=== PATIENT | female | born 1990 | race Caucasian/White ===

== ENCOUNTER 2020-11-16 09:50 | Emergency (ER) | payer SELFPAY ==
[2020-11-16 11:45] LABS: Basophils % 0.5 % (0-1.3); Hematocrit 41.5 % (36.0-45.0); Lymphocytes % 29.6 % (15.3-44.8); MPV 8.1 fL (7.6-11.3); RBC Red Blood Cell Count 4.85 M/uL (3.86-4.86)
[2020-11-16] MEDS ORDERED: ONDANSETRON 4 MG/2 ML VIAL ONE (11:54)
[2020-11-16] MEDS ORDERED: KETOROLAC 30 MG/ML INJ ONE (11:54)
[2020-11-16] MEDS ORDERED: NA CHLORIDE 0.9% 1,000 ML ONE (11:55)
[2020-11-16 12:03] LABS: BUN Blood Urea Nitrogen 13 mg/dL (7-18); Bicarbonate 27 mmol/L (21-32); Glucose Level 95 mg/dL (74-106); Potassium 4.3 mmol/L (3.5-5.1); Sodium Level 139 mmol/L (136-145)
[2020-11-16 12:10] LABS: HCG, Quantitative < 1 mIU/mL (1-3)
--- NOTE | 2020-11-16 12:21 | RAD REPORT ---
EXAM DESCRIPTION: US - Transvaginal Study Probe - 11/16/2020 11:58 am CLINICAL HISTORY: ABD PAIN Pelvic pain. COMPARISON: No comparisons FINDINGS: The uterus is normal in size, shape and echotexture. The uterus measures 8.4 x 4.1 x 5.2 c m. The endometrial stripe measures 7 mm, normal. Both ovaries are normal in size, shape and echotexture. The right ovary measures 1.9 x 1.8 cm. The left ovary measures 2.0 x 1.8 cm. No ovarian or parovarian lesions. No adnexal masses. Normal Doppler blood flow was demonstrated to both ovaries. No significant pelvic ascites. IMPRESSION: Unremarkable study.
--- NOTE | 2020-11-16 12:26 | ER ---
Nurse's Notes [facility] Name: Katrin Szymanski Age: 30 yrs Sex: Female : 1990 Arrival Date: 11/16/2020 Time: 09:51 Bed 4 Private MD: Diagnosis: Abdominal and pelvic pain;Abnormal uterine and vaginal bleeding, unspecified Presentation: 11/16 10:13 Chief complaint: Patient states: Lower abdominal pain for 2 weeks. On 11/02/20 she ll1 started having heavy vaginal bleeding with large clots in it, lasted 4 days. Ever since she feels bloated, crampy, malaise, fatigue and SOB easily. No fever. + nausea. Coronavirus screen: Client denies travel out of the [place] in the last 14 days. At this time, the client does not indicate any symptoms associated with coronavirus-19. Ebola Screen: Patient denies travel to an Ebola-affected area in the 21 days before illness onset. Initial Sepsis Screen: Does the patient meet any 2 criteria? No. Patient's initial sepsis screen is negative. Does the patient have a suspected source of infection? Yes: Acute abdominal pain. Risk Assessment: Do you want to hurt yourself or someone else? Patient reports no desire to harm self or others. Onset of symptoms was November 02, 2020. 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 Flu vaccine is not up to date. - Social history:: Smoking status: Patient denies any tobacco usage or history of. Screenin:41 Abuse screen: Denies threats or abuse. Nutritional screening: No deficits noted. jd3 Tuberculosis screening: No symptoms or risk factors identified. Fall Risk Ambulatory Aid- None/Bed Rest/Nurse Assist (0 pts). Gait- Normal/Bed Rest/Wheelchair (0 pts) Mental Status- Oriented to own ability (0 pts). Total Madden Fall Scale indicates No Risk (0-24 pts). Assessment: 11:38 General: Appears in no apparent distress. comfortable, Behavior is calm, cooperative, jd3 appropriate for age, Reports fatigue for >3 days. Pain: Complains of pain in abdomen Quality of pain is described as aching, tender. Neuro: Level of Consciousness is awake, alert, obeys commands, Oriented to person, place, time, situation. Cardiovascular: Denies chest pain, Capillary refill < 3 seconds Patient's skin is warm and dry. Respiratory: Airway is patent Respiratory effort is even, unlabored, Respiratory pattern is regular, symmetrical, Denies cough, shortness of breath. GI: Abdomen is round non-distended, Abd is soft and non tender X 4 quads. Reports lower abdominal pain, nausea. : Reports vaginal bleeding that is with clots. EENT: No signs and/or symptoms were reported regarding the EENT system. Derm: Skin is intact, Skin is dry, Skin is normal, Skin temperature is warm. Musculoskeletal: Circulation, motion, and sensation intact. Range of motion: intact in all extremities. 12:59 Reassessment: Patient appears in no apparent distress at this time. Patient and/or jd3 family updated on plan of care and expected duration. Pain level reassessed. Patient is alert, oriented x 3, equal unlabored respirations, skin warm/dry/pink. Patient states feeling better. Vital Signs: 10:13 BP 138 / 74; Pulse 85; Resp 16; Temp 98.3; Pulse Ox 99% ; Weight 95.25 kg; Height 5 ft. ll1 3 in. (160.02 cm); Pain 5/10; 13:01 BP 128 / 70; Pulse 83; Resp 16 S; Pulse Ox 99% on R/A; jd3 10:13 Body Mass Index 37.20 (95.25 kg, 160.02 cm) ll1 ED Course: 09:51 Patient arrived in ED. am2 10:15 Triage completed. ll1 10:16 Arm band placed on. ll1 10:35 Benedict Huitron MD is Attending Physician. meg 10:36 Patient placed in an exam room, on a stretcher. ll1 10:42 Brett De Luna RN is Primary Nurse. jd3 11:30 Inserted saline lock: 20 gauge in left antecubital area, using aseptic technique. Blood jd3 collected. 11:41 Patient has correct armband on for positive identification. Bed in low position. Call jd3 light in reach. Side rails up X 1. Pulse ox on. NIBP on. 11:48 US Transvaginal Study (Probe) In Process Unspecified. EDSD 12:25 Katharine Swanson MD is Referral Physician. [facility] 13:00 No provider procedures requiring assistance completed. IV discontinued, intact, jd3 bleeding controlled, No redness/swelling at site. Pressure dressing applied. Administered Medications: 11:50 Drug: NS 0.9% 1000 ml Route: IV; Rate: 1 bolus; Site: left antecubital; jd3 12:50 Follow up: Response: No adverse reaction; IV Status: Completed infusion jd3 11:50 Drug: TORadol (ketorolac) 30 mg Route: IVP; Site: left antecubital; jd3 12:50 Follow up: Response: No adverse reaction jd3 11:50 Drug: Zofran (Ondansetron) 4 mg Route: IVP; Site: left antecubital; jd3 12:50 Follow up: Response: No adverse reaction jd3 Outcome: 12:25 Discharge ordered by . [facility] 13:00 Discharged to home ambulatory, with family. jd3 13:00 Condition: stable 13:00 Discharge instructions given to patient, Instructed on discharge instructions, follow up and referral plans. medication usage, Demonstrated understanding of instructions, follow-up care, medications, Prescriptions given X 1. 13:03 Patient left the ED. jd3 Signatures: Dispatcher [employer] EDSD Benedict Huitron MD MD cha Moreno, Amanda am2 Brett De Luna RN RN Mai Joshi RN RN ll1 Corrections: (The following items were deleted from the chart) 13:02 13:02 Response: No adverse reaction; IV Status: Completed infusion jd3 jd3
--- NOTE | 2020-11-16 12:26 | EDPHYS ---
Physician Documentation [facility] Name: Katrin Szymanski Age: 30 yrs Sex: Female : 1990 Arrival Date: 11/16/2020 Time: 09:51 Bed 4 Private MD: GAVIN Physician Benedict Huitron HPI: 11/16 11:15 This 30 yrs old Female presents to ER via Ambulatory with complaints of meg Abdominal Pain. 11:15 The patient presents with abdominal pain in the lower abdomen. Onset: The meg symptoms/episode began/occurred 5 day(s) ago. The patient presents with pelvic pain, the pain does not radiate, the pain is described as constant, crampy, vaginal bleeding that is. Onset: The symptoms/episode began/occurred 14 day(s) ago. Modifying factors: The symptoms are alleviated by nothing, the symptoms are aggravated by movement, pressure, walking. Associated signs and symptoms: The patient has no apparent associated signs or symptoms. Severity of symptoms: At their worst the symptoms were moderate, in the emergency department the symptoms are unchanged. The symptoms do not radiate. The patient is sexually active. 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 Flu vaccine is not up to date. - Social history:: Smoking status: Patient denies any tobacco usage or history of. ROS: 11:16 Constitutional: Negative for fever, chills, and weight loss, Eyes: Negative for injury, meg pain, redness, and discharge, ENT: Negative for injury, pain, and discharge, Neck: Negative for injury, pain, and swelling, Cardiovascular: Negative for chest pain, palpitations, and edema, Respiratory: Negative for shortness of breath, cough, wheezing, and pleuritic chest pain, Back: Negative for injury and pain, : Negative for injury, bleeding, discharge, and swelling, MS/Extremity: Negative for injury and deformity, Skin: Negative for injury, rash, and discoloration, Neuro: Negative for headache, weakness, numbness, tingling, and seizure, Psych: Negative for depression, anxiety, suicide ideation, homicidal ideation, and hallucinations, Allergy/Immunology: Negative for hives, rash, and allergies, Endocrine: Negative for neck swelling, polydipsia, polyuria, polyphagia, and marked weight changes, Hematologic/Lymphatic: Negative for swollen nodes, abnormal bleeding, and unusual bruising. 11:16 Abdomen/GI: Positive for abdominal pain, of the right lower quadrant and left lower quadrant. Exam: 11:16 Constitutional: This is a well developed, well nourished patient who is awake, alert, meg and in no acute distress. Head/Face: Normocephalic, atraumatic. Eyes: Pupils equal round and reactive to light, extra-ocular motions intact. Lids and lashes normal. Conjunctiva and sclera are non-icteric and not injected. Cornea within normal limits. Periorbital areas with no swelling, redness, or edema. ENT: Nares patent. No nasal discharge, no septal abnormalities noted. Tympanic membranes are normal and external auditory canals are clear. Oropharynx with no redness, swelling, or masses, exudates, or evidence of obstruction, uvula midline. Mucous membranes moist. Neck: Trachea midline, no thyromegaly or masses palpated, and no cervical lymphadenopathy. Supple, full range of motion without nuchal rigidity, or vertebral point tenderness. No Meningismus. Chest/axilla: Normal chest wall appearance and motion. Nontender with no deformity. No lesions are appreciated. Cardiovascular: Regular rate and rhythm with a normal S1 and S2. No gallops, murmurs, or rubs. Normal PMI, no JVD. No pulse deficits. Respiratory: Lungs have equal breath sounds bilaterally, clear to auscultation and percussion. No rales, rhonchi or wheezes noted. No increased work of breathing, no retractions or nasal flaring. Abdomen/GI: Soft, non-tender, with normal bowel sounds. No distension or tympany. No guarding or rebound. No evidence of tenderness throughout. Back: No spinal tenderness. No costovertebral tenderness. Full range of motion. Skin: Warm, dry with normal turgor. Normal color with no rashes, no lesions, and no evidence of cellulitis. MS/ Extremity: Pulses equal, no cyanosis. Neurovascular intact. Full, normal range of motion. Neuro: Awake and alert, GCS 15, oriented to person, place, time, and situation. Cranial nerves II-XII grossly intact. Motor strength 5/5 in all extremities. Sensory grossly intact. Cerebellar exam normal. Normal gait. Psych: Awake, alert, with orientation to person, place and time. Behavior, mood, and affect are within normal limits. Vital Signs: 10:13 BP 138 / 74; Pulse 85; Resp 16; Temp 98.3; Pulse Ox 99% ; Weight 95.25 kg; Height 5 ft. ll1 3 in. (160.02 cm); Pain 5/10; 13:01 BP 128 / 70; Pulse 83; Resp 16 S; Pulse Ox 99% on R/A; jd3 10:13 Body Mass Index 37.20 (95.25 kg, 160.02 cm) ll1 MDM: 10:35 Patient medically screened. [facility] 11:17 Differential diagnosis: dysmenorrhea, menometrorrhagia, Dysmenorrhea, Endometriosis, meg Irritable bowel syndrome, Menorrhagia. Data reviewed: vital signs, nurses notes, lab test result(s), radiologic studies, ultrasound. 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 Counseling: I had a detailed discussion with the patient and/or guardian regarding: the historical points, exam findings, and any diagnostic results supporting the discharge/admit diagnosis, lab results, radiology results, the need for outpatient follow up, for definitive care, an OB/Gyne specialist. 11/16 11:14 Order name: Quantitative Hcg [facility] 11/16 11:14 Order name: Abo/rh Typing; Complete Time: 12:25 meg 11/16 11:14 Order name: Basic Metabolic Panel; Complete Time: 12: [facility] 11/16 11:14 Order name: CBC with Diff; Complete Time: 11:55 [facility] 11/16 11:14 Order name: US Transvaginal Study (Probe); Complete Time: 12:25 meg 11/16 11:15 Order name: HCG, Quantitative; Complete Time: 12:25 EDMS 11/16 11:14 Order name: IV Saline Lock; Complete Time: 11:32 [facility] 11/16 11:14 Order name: Labs collected and sent; Complete Time: 11:32 [facility] 11/16 11:14 Order name: NPO; Complete Time: 11:16 [facility] Administered Medications: 11:50 Drug: NS 0.9% 1000 ml Route: IV; Rate: 1 bolus; Site: left antecubital; jd3 12:50 Follow up: Response: No adverse reaction; IV Status: Completed infusion jd3 11:50 Drug: TORadol (ketorolac) 30 mg Route: IVP; Site: left antecubital; jd3 12:50 Follow up: Response: No adverse reaction jd3 11:50 Drug: Zofran (Ondansetron) 4 mg Route: IVP; Site: left antecubital; jd3 12:50 Follow up: Response: No adverse reaction jd3 Disposition: 11/16/20 12:25 Discharged to Home. Impression: Abdominal and pelvic pain, Abnormal uterine and vaginal bleeding, unspecified. - Condition is Stable. - Discharge Instructions: Abnormal Uterine Bleeding, Dysmenorrhea, Abnormal Uterine Bleeding, [id number]. - Prescriptions for Ibuprofen 600 mg Oral Tablet - take 1 tablet by ORAL route every 6 hours As needed take with food; 20 tablet. - Medication Reconciliation Form, Thank You Letter, Antibiotic Education, Prescription Opioid Use form. - Follow up: Private Physician; When: 2 - 3 days; Reason: Recheck today's complaints, Re-evaluation by your physician. Follow up: Katharine Swanson; When: 2 - 3 days; Reason: Recheck today's complaints, Re-evaluation by your physician. - Problem is new. - Symptoms have improved. Signatures: Dispatcher [employer] EDMS Benedict Huitron MD MD cha Davies, Jonathon, RN RN jd3 Lewis, Lynsay, RN RN ll1 Corrections: (The following items were deleted from the chart) 13:03 12:25 11/16/2020 12:25 Discharged to Home. Impression: Abdominal and pelvic pain; jd3 Abnormal uterine and vaginal bleeding, unspecified. Condition is Stable. Discharge Instructions: Abnormal Uterine Bleeding, Dysmenorrhea, Abnormal Uterine Bleeding, [id number]. Prescriptions for Ibuprofen 600 mg Oral Tablet - take 1 tablet by ORAL route every 6 hours As needed take with food; 20 tablet. and Forms are Medication Reconciliation Form, Thank You Letter, Antibiotic Education, Prescription Opioid Use. Follow up: Private Physician; When: 2 - 3 days; Reason: Recheck today's complaints, Re-evaluation by your physician. Follow up: Katharine Swanson; When: 2 - 3 days; Reason: Recheck today's complaints, Re-evaluation by your physician. Problem is new. Symptoms have improved. meg
[2020-11-16 13:23] VITALS: TEMP 98.3; O2SAT 99
[2020-11-16 13:24] VITALS: BP 128/70
== END 2020-11-16 13:03 | disposition home or self-care (01) ==
LOC: ER 09:50
DX: N93.9 Abnormal uterine and vaginal bleeding, unspecified (principal)
CPT/HCPCS: 36415; 76830; 80048; 84702; 85025; 86900; 86901; 96361; 96374; 96375; 99284; J2405; J7030